=== PATIENT | female | born 2005 | race African-American/Black ===

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

== ENCOUNTER 2023-01-31 20:01 | Emergency (ER) | payer OTHER ==
[2023-01-31 22:28] LABS: Bilirubin Neg (Negative); Blood, Urine 250 (Negative); Clarity Clear (Clear); Glucose, Urine (Dipstick) Normal (Negative); Ketone, Urine Negative (Negative); Leukocyte Negative (Negative); Nitrite Negative (Negative); Protein, Urine (Dipstick) Negative (Neg-Trace); Urobilinogen Normal mg/dL (Less than 2)
[2023-01-31 22:42] LABS: Bacteria/HPF Rare-Few HPF (None Seen); CAUTI Indications for Culture Acute Hematuria; Squamous Epithelial 0-3 HPF (0-3); WBC/HPF 0-3 HPF (0-3)
[2023-01-31 22:43] LABS: Urine Culture Reflex No No
[2023-01-31 23:32] LABS: ALT (SGPT) 28 U/L (8-55); AST (SGOT) 18 U/L (5-30); Albumin 4.3 g/dL (3.5-5.0); Alkaline Phosphatase 61 U/L (40-100); Anion Gap 15 mmol/L (10-20); BUN (Urea Nitrogen) 6 mg/dL (8.4-21.0); Bilirubin, Total 0.3 mg/dL (0.2-1.2); Calc. Creatinine Clearance 0 mL/min (70-130); Calcium 9.7 mg/dL (7.8-10.44); Carbon Dioxide 21 mmol/L (22-29); Chloride 104 mmol/L (98-107); Estimated GFR 130; Globulin 3.2 g/dL (2.4-3.5); Glucose 82 mg/dL (70-105); Lipase 16 U/L (8-78); Potassium 3.8 mmol/L (3.5-5.1); Protein, Total 7.5 g/dL (6.0-8.3); Sodium 136 mmol/L (136-145)
[2023-01-31 23:33] LABS: #Eosinphils 0.2 10x3/uL (0.0-0.5); #Monocytes 0.4 10x3/uL (0.0-1.1); #Neutrophils 2.2 10x3/uL (1.5-8.4); %Basophils 0.7 % (0.0-2.0); %Eosinophils 3.9 % (0.0-6.0); %Lymphocytes 51.2 % (18.0-47.0); %Monocytes 6.9 % (0.0-10.0); %Neutrophils 37.3 % (40.0-75.0); Hematocrit 35.9 % (34.9-44.5); Hemoglobin 12.1 g/dL (12.0-15.5); Mean Corpuscular HGB CONC 33.7 g/dL (32.0-36.0); Mean Corpuscular Hemoglobin 26.9 pg (27.0-33.0); Mean Corpuscular Volume 79.8 fl (81.6-98.3); Mean Platelet Volume 9.7 fl (7.4-10.4); Platelet Count 316 10x3/uL (150-450); RBC Distribution Width 12.5 % (11.5-14.5); White Blood Cell (WBC) Count 5.9 10x3/uL (3.5-10.5)
== END 2023-02-01 00:33 | disposition home or self-care (01) ==
LOC: CSHERS 20:01
DX: O20.9 Hemorrhage in early pregnancy, unspecified (principal); O30.041 Twin pregnancy, dichorionic/diamniotic, first trimester; Z3A.08 8 weeks gestation of pregnancy
CPT/HCPCS: 36415; 76856; 80053; 81001; 83690; 84702; 85025; 86900; 86901

== ENCOUNTER 2023-07-11 16:55 | Day surgery (SDC) | payer MEDICAID, OTHER ==
[2023-07-11] MEDS ORDERED: hydrALAZINE 20 MG/ML VIAL SLOW IVP PRN (18:03)
[2023-07-11 18:22] VITALS: BMI 24.7
[2023-07-11 18:54] LABS: Fetal Membranes Rupture No Membranes Rupture (No Rupture)
[2023-07-11] MEDS ORDERED: metroNIDAZOLE 250 MG TAB PO SCH (19:30)
[2023-07-11] MEDS ORDERED: Fluconazole 100 MG TAB PO SCH (19:45)
== END 2023-07-11 20:15 | disposition home or self-care (01) ==
LOC: CSHLD/OP 16:55
PROVIDERS: ATTEND Obstetrics & Gynecology
DX: O23.593 Infection of other part of genital tract in pregnancy, third trimester (principal); B96.89 Other specified bacterial agents as the cause of diseases classified elsewhere; O98.813 Other maternal infectious and parasitic diseases complicating pregnancy, third trimester; B37.9 Candidiasis, unspecified; O30.043 Twin pregnancy, dichorionic/diamniotic, third trimester; Z3A.29 29 weeks gestation of pregnancy; Z79.899 Other long term (current) drug therapy
CPT/HCPCS: 76819; 84112; 87480; 87510; 87660; 99283

== ENCOUNTER 2023-07-15 11:00 | Day surgery (SDC) | payer OTHER ==
[2023-07-15] MEDS ORDERED: hydrALAZINE 20 MG/ML VIAL SLOW IVP PRN (12:00)
[2023-07-15 12:46] VITALS: BMI 24.1
[2023-07-15 12:52] LABS: Fetal Membranes Rupture No Membranes Rupture (No Rupture)
== END 2023-07-15 14:18 | disposition home health service (06) ==
LOC: CSHLD/OP 11:00
PROVIDERS: ATTEND Student in an Organized Health Care Education/Training Program
DX: O47.03 False labor before 37 completed weeks of gestation, third trimester (principal); O23.593 Infection of other part of genital tract in pregnancy, third trimester; O99.891 Other specified diseases and conditions complicating pregnancy; D56.3 Thalassemia minor; O30.043 Twin pregnancy, dichorionic/diamniotic, third trimester; Z79.82 Long term (current) use of aspirin; Z79.899 Other long term (current) drug therapy; Z3A.29 29 weeks gestation of pregnancy
CPT/HCPCS: 76819; 84112

== ENCOUNTER 2023-08-01 13:07 | Day surgery (SDC) | payer OTHER ==
[2023-08-01 13:47] VITALS: BMI 25.1
[2023-08-01 15:56] LABS: ALT (SGPT) 18 U/L (8-55); AST (SGOT) 21 U/L (5-30); Albumin 3.2 g/dL (3.5-5.0); Alkaline Phosphatase 255 U/L (40-100); Anion Gap 12 mmol/L (10-20); BUN (Urea Nitrogen) Less than 4 mg/dL (8.4-21.0); Bilirubin, Total 0.6 mg/dL (0.2-1.2); Calc. Creatinine Clearance 196 mL/min (70-130); Calcium 8.4 mg/dL (7.8-10.44); Carbon Dioxide 21 mmol/L (22-29); Chloride 107 mmol/L (98-107); Estimated GFR 138; Glucose 84 mg/dL (70-105); Potassium 3.6 mmol/L (3.5-5.1); Protein, Total 6.2 g/dL (6.0-8.3); Sodium 136 mmol/L (136-145)
== END 2023-08-01 16:35 | disposition home or self-care (01) ==
LOC: CSHLD/OP 13:07
PROVIDERS: ATTEND Family Medicine
DX: O99.891 Other specified diseases and conditions complicating pregnancy (principal); R10.11 Right upper quadrant pain; O30.043 Twin pregnancy, dichorionic/diamniotic, third trimester; Z3A.32 32 weeks gestation of pregnancy; Z79.899 Other long term (current) drug therapy
CPT/HCPCS: 36415; 80053

== ENCOUNTER 2023-08-16 | Inpatient (IN) | payer OTHER | END 2023-08-18 15:45 | disposition home or self-care (01) | DRG 805 | PROVIDERS: ADMIT Obstetrics & Gynecology | PROC: 10E0XZZ Delivery of Products of Conception, External Approach (ICD-10-PCS; principal; 2023-08-16) | PROC: 0HQ9XZZ Repair Perineum Skin, External Approach (ICD-10-PCS; 2023-08-16) | DX: O42.013 Preterm premature rupture of membranes, onset of labor within 24 hours of rupture, third trimester (principal); O60.14X0 Preterm labor third trimester with preterm delivery third trimester, not applicable or unspecified; Z37.2 Twins, both liveborn; Z3A.34 34 weeks gestation of pregnancy; O30.043 Twin pregnancy, dichorionic/diamniotic, third trimester; O99.824 Streptococcus B carrier state complicating childbirth; O70.0 First degree perineal laceration during delivery; O69.81X0 Labor and delivery complicated by cord around neck, without compression, not applicable or unspecified ==

== ENCOUNTER 2024-06-11 17:20 | Emergency (ER) | payer OTHER ==
[2024-06-11] MEDS ORDERED: Ketorolac Tromethamine 30 MG (1 mL) VIAL ONE (17:59)
[2024-06-11] MEDS ORDERED: Ondansetron PF 4 MG/2 ML Vial ONE (17:59)
[2024-06-11 18:15] LABS: #Basophils 0.02 10x3/uL (0.0-0.2); #Eosinophils 0.06 10x3/uL (0.0-0.5); #Monocytes 0.26 10x3/uL (0.0-1.1); #Neutrophils 6.01 10x3/uL (1.5-8.4); %Basophils 0.3 % (0.0-2.0); %Eosinophils 0.8 % (0.0-6.0); %Lymphocytes 16.3 % (18.0-47.0); %Monocytes 3.4 % (0.0-10.0); %Neutrophils 78.9 % (40.0-75.0); Hemoglobin 13.5 g/dL (12.0-15.5); Mean Corpuscular HGB CONC 33.8 g/dL (32.0-36.0); Mean Corpuscular Hemoglobin 27.3 pg (27.0-33.0); Platelet Count 341 10x3/uL (150-450); RBC Distribution Width 12.1 % (11.5-14.5); Red Blood Cell (RBC) Count 4.94 10x6/uL (3.90-5.03); White Blood Cell (WBC) Count 7.6 10x3/uL (3.5-10.5)
[2024-06-11 18:47] LABS: BHCG - Serum Negative (NEGATIVE); Pregs Control Background? CLEAR/WHITE (CLR/WHITE); Pregs Control Bar Appear? YES (CONTROL BAR)
[2024-06-11 18:54] LABS: ALT (SGPT) 120 U/L (8-55); AST (SGOT) 83 U/L (5-34); Alkaline Phosphatase 104 U/L (40-100); Anion Gap 15 mmol/L (10-20); BUN (Urea Nitrogen) 10 mg/dL (7.0-18.7); Bilirubin, Total 0.3 mg/dL (0.2-1.2); Calc. Creatinine Clearance 0 mL/min (70-130); Calcium 9.6 mg/dL (7.8-10.44); Carbon Dioxide 21 mmol/L (22-29); Chloride 107 mmol/L (98-107); Estimated GFR 125; Glucose 135 mg/dL (70-105); Lipase 9 U/L (8-78); Potassium 4.2 mmol/L (3.5-5.1); Sodium 139 mmol/L (136-145)
== END 2024-06-11 19:40 | disposition home or self-care (01) ==
LOC: CSHERS 17:20
DX: E86.0 Dehydration (principal); R11.2 Nausea with vomiting, unspecified; Z55.0 Illiteracy and low-level literacy
CPT/HCPCS: 80053; 83690; 84703; 85025; 93005; 96374; 96375; J1885; J2405